=== PATIENT | male | born 1985 | race Hispanic/Latino ===

== ENCOUNTER 2018-02-22 22:26 | Inpatient (IN) | payer MEDICAID ==
[2018-02-22 23:17] LABS: BASO # 0.1 K/uL (0.0-0.2); BASO % 0.9 % (0.0-2.0); EOS # 0.4 K/uL (0.0-0.7); EOS % 2.2 % (0.0-4.0); HEMOGLOBIN 13.7 g/dL (12.0-18.0); LYMPH # 5.4 K/uL (1.0-4.3); LYMPH % 33.6 % (20.0-40.0); MEAN CELL VOLUME 87.2 fL (80.0-94.0); MEAN CORPUSCULAR HEMOGLOBIN 30.4 pg (27.0-31.0); MEAN CORPUSCULAR HGB CONC 34.8 g/dL (33.0-37.0); MEAN PLATELET VOLUME 7.5 fL (7.2-11.7); MONO # 0.7 K/uL (0.0-0.8); MONO % 4.5 % (0.0-10.0); NEUT # 9.4 K/uL (1.8-7.0); NEUT % 58.8 % (50.0-75.0); RBC 4.52 Mil/uL (4.40-5.90); WHITE BLOOD COUNT 15.9 K/uL (4.8-10.8)
[2018-02-22 23:31] LABS: ALB/GLOB RATIO 1.2 (1.0-2.1); ALBUMIN 4.7 g/dL (3.5-5.0); ALT/SGPT 68 U/L (21-72); AST/SGOT 33 U/L (17-59); BLOOD UREA NITROGEN 12 mg/dL (9-20); CALCIUM 9.6 mg/dl (8.6-10.4); GFR AFRICAN-AMERICAN > 60; GFR NON-AFRICAN AMERICAN > 60
[2018-02-22] MEDS ORDERED: Potassium Chloride 20 mEq ER Tab PO STA (23:47)
[2018-02-23] MEDS ORDERED: Potassium Chloride 20 mEq ER Tab PO ONE ×2 (00:07→10:00)
--- NOTE | 2018-02-23 00:36 | C.PDOC ---
History Of Present Illness 32 year old male presents to the ER requesting detox from heroin, last use was earlier today. Patient admits he also smokes cigarette. He notes he had an episode of vomiting today but otherwise denies nausea, fever, chills, or other complaints. Time Seen by Provider: 02/22/18 22:51 Chief Complaint (Nursing): Substance Abuse History Per: Patient History/Exam Limitations: no limitations Onset/Duration Of Symptoms: Days Current Symptoms Are (Timing): Still Present Suicide/Self Injury Attempted (Context): None Modifying Factor(s): Other (Heroin) Associated Symptoms: denies: Depression, Suicidal Thoughts Involuntary Hold By: None Recent travel outside of the [place]: No Past Medical History Reviewed: Historical Data, Nursing Documentation, Vital Signs Vital Signs: Last Vital Signs Temp 98.3 F 02/22/18 22:43 Pulse 78 02/22/18 22:43 Resp 20 02/22/18 22:43 BP 122/83 02/22/18 22:43 Pulse Ox 95 02/23/18 03:19 - Medical History PMH: Bronchitis, Depression Surgical History: Cholecystectomy Family History: States: Unknown Family Hx - Social History Hx Alcohol Use: Yes Hx Substance Use: Yes Review Of Systems Constitutional: Negative for: Fever, Chills Cardiovascular: Negative for: Chest Pain, Palpitations Respiratory: Negative for: Cough Gastrointestinal: Positive for: Vomiting. Negative for: Nausea Physical Exam - Physical Exam Appears: Non-toxic Skin: Normal Color, Warm, Dry Head: Atraumatic, Normacephalic Eye(s): bilateral: Normal Inspection Oral Mucosa: Moist Chest: Symmetrical, No Tenderness Cardiovascular: Rhythm Regular Respiratory: Normal Breath Sounds, No Rales, No Rhonchi, No Wheezing Gastrointestinal/Abdominal: Soft, No Tenderness Back: No CVA Tenderness Neurological/Psych: Oriented x3, Normal Speech ED Course And Treatment - Laboratory Results Result Diagrams: 02/22/18 23:15 02/22/18 23:15 O2 Sat by Pulse Oximetry: 95 (Room air) Pulse Ox Interpretation: Normal Medical Decision Making Medical Decision Making: Impression: 32 year old male for detox Plan: * Blood work * Urinalysis * Crisis Labs ordered and reviewed. In my clinical judgment patient is medically cleared and stable for psychiatric admission. home economics extension worker contacted for evaluation. As per CW patient is to be admitted under Dr Zapata service for detox Disposition Counseled Patient/Family Regarding: Diagnosis, Need For Followup - Disposition Disposition: HOSPITALIZED Disposition Time: 02:55 Condition: STABLE - POA Present On Arrival: None - Clinical Impression Clinical Impression: Heroin use disorder, severe, dependence, Cocaine use disorder, Cannabis abuse - PA / DE ALCOHOLIZER / Resident Statement MD/DO has reviewed & agrees with the documentation as recorded. - Scribe Statement The provider has reviewed the documentation as recorded by the Scribe Yobany Junior All medical record entries made by the Angelaibe were at my direction and personally dictated by me. I have reviewed the chart and agree that the record accurately reflects my personal performance of the history, physical exam, medical decision making, and the department course for this patient. I have also personally directed, reviewed, and agree with the discharge instructions and disposition. Decision To Admit - Pt Status Changed To: Hospital Disposition Of: Inpatient - Admit Certification Admit to Inpatient:: After my assessment, the patient will require hospitalization for at least two midnights. This is because of the severity of symptoms shown, intensity of services needed, and/or the medical risk in this patient being treated as an outpatient. - InPatient: Physician Admission Certification: I certify that this patient requires 2 or more midnights of care for the following reason:: Patient needs inpatient care for detox polysubstance - . Bed Request Type: Detox Admitting Physician: Camilo Zapata Patient Diagnosis: Heroin use disorder, severe, dependence, Cocaine use disorder, Cannabis abuse
[2018-02-23 01:56] LABS: SQUAMOUS EPITHIAL 1 /hpf (0-5); URINE BACTERIA OCC (<OCC); URINE BILIRUBIN 1+ (NEGATIVE); URINE BLOOD 2+ (NEGATIVE); URINE CLARITY Hazy (Clear); URINE COLOR Amber (YELLOW); URINE GLUCOSE (UA) NORMAL (Normal); URINE LEUKOCYTE ESTERASE NEG Leu/uL (Negative); URINE PROTEIN 3+ mg/dL (NEGATIVE)
[2018-02-23 02:12] LABS: BARBITURATES, UR NEGATIVE (NEGATIVE); PHENCYCLIDINE, UR NEGATIVE (NEGATIVE)
[2018-02-23 02:19] LABS: BENZODIAZEPINES, UR POSITIVE (NEGATIVE); OPIATES, UR POSITIVE (NEGATIVE)
--- NOTE | 2018-02-23 06:46 | PCM.BM ---
<Laila Weaver - Last Filed: 02/23/18 06:44> Treatment Plan Problems - Problems identified on initial assessmt Opiates Abuse Date Initiated: 02/23/18 Time Initiated: 04:20 Assessment reference: NA Status: Active Treatment assets and liabiliti Patient Assests: ADL independent, physically healthy, negotiates basic needs Patient Liabilities: substance abuse (Opiates, Crack, Benzo, Marijuana) - Milieu Protocol Maintain good personal hygiene: daily Encourage regular showers, daily Remind patient to perform daily oral care, every shift Assist patient to perform ADL's Conduct patient checks and document Observation sheet: Q15 minutes Maintain personal safety: every shift Educate patient to report safety concerns to staff, every shift Monitor environment for contraband/sharps Medication safety: Monitor for expected outcome, potential side effects: every shift, Assess barriers to learning: every shift, Assess readiness for medication education: every shift <Nathen Tejeda - Last Filed: 02/23/18 10:15> - Diagnosis (1) Heroin use disorder, severe, dependence Status: Acute Interventions: 02/23/18 10:15 * Assess 7x/week regarding severity of withdrawal * Educate regarding risks, benefits, side effects and alternatives of medications * Use Motivational Interviewing for abstinence * Use CBT for relapse prevention * Medication management for withdrawal symptoms * Encourage medication assisted treatment * <Patience Nelson - Last Filed: 02/23/18 11:01> Family Contact Family involvement: Famliy/SO not involved - Goals for Treatment Patient goals for treatment: Complete detox and return to IOP. Discharge/Continuing Care - Education Needs Education Needs: Patient Medication, Patient Diagnosis/Disease Process, Patient Coping Skills, Patient Anger Management skills, Patient Placement options, Patient Community resources - Discharge Discharge Criteria: No longer exhibiting s/s of withdrawal, Reduction of target symptoms Discharge to:: Home - Treatment Team Participation Patient/Family/SO Statement: 02/23/18 11:00 "I wanna go back to outpatient after here..." Discussed with Family/SO: No Was Patient/Family/SO present at Treatment Team Meeting: Yes
[2018-02-23] MEDS ORDERED: Aluminum Hydroxide/Magnesium Hydroxide Susp (30 mL) PO PRN (08:33)
--- NOTE | 2018-02-23 10:15 | PCM.PSYCH ---
Initial Psychiatric Evaluation - Initial Psychiatric Evaluation Type of Admission: Voluntary Legal Status: Capacity Chief Complaint (in patient's own words): "Detox" History of Present Illness and Precipitating Events: The patient is seen, chart reviewed and case discussed. This is a 22-year-old male, common-law , has one child who is 10 years old. Lives with and son. Unemployed. The patient is here for heroin detox; using 20 bags IV for 4 months but he first started when he was 27 years old. He also uses crack cocaine sometimes, marijuana daily and cigarettes 1 pack per day. He denies alcohol but uses Xanax "rarely." He was in detox 2 times and rehabilitation once in the past. He was seeing [facility]. Past psych history: He states he had depression and anxiety and still feels depressed. However, he denies feeling suicidal. And no psychotic or manic symptoms elicited. No admissions or suicide attempts. Family psych history: Father was an "alcoholic." Medical history: Denies Current Medications: Active Medications Generic Name Dose Route Start Last Admin Trade Name Freq PRN Reason Stop Dose Admin Al Hydrox/Mg Hydrox/Simethicone 30 ml 02/23/18 08:33 Maalox 30 Ml PO TID PRN Indigestion / Heartburn Clonidine HCl 0.1 mg 02/23/18 08:33 Catapres PO Q8 PRN COWS Score More or Equal to 5 Dicyclomine HCl 10 mg 02/23/18 08:33 Bentyl PO Q6 PRN Muscle spasm Hydroxyzine HCl 50 mg 02/23/18 08:35 Atarax PO Q6H PRN Anxiety Ibuprofen 600 mg 02/23/18 08:33 Motrin Tab PO Q6 PRN Pain, moderate (4-7) Loperamide HCl 2 mg 02/23/18 08:33 Imodium PO Q8 PRN Diarrhea Mirtazapine 15 mg 02/23/18 22:00 Remeron PO HS FRANCISCA Nicotine 1 patch 02/23/18 10:00 Nicoderm Cq TD DAILY FRANCISCA Ondansetron HCl 4 mg 02/23/18 08:33 Zofran Tab PO Q8 PRN Nausea/Vomiting Trazodone HCl 50 mg 02/23/18 22:00 Desyrel PO HS PRN Insomnia Past Psychiatric History - Past Psychiatric History Previous Treatment History: None Pertinent Medical Hx (Current Medical&Sleep Prob, Allergies): Allergies Allergy/AdvReac Type Severity Reaction Status Date / Time No Known Allergies Allergy Unverified 02/22/18 22:47 No Known Home Med 02/22/18 Review of Systems - Neurological Neurological: UNREMARKABLE - Psychiatric Psychiatric: Abnormal Sleep Pattern, Anhedonia, Anxiety, Depression, Difficulty Concentrating. absent: Hallucinations, Homicidal Ideation, Suicidal Ideation Mental Status Examination - Personal Presentation Personal Presentation: Looks stated age - Affect Affect: Constricted - Motor Activity Motor Activity: Calm - Reliability in Providing Information Reliability in Providing Information: Good - Speech Speech: Organized - Mood Mood: Depressed, Anxious - Formal Thought Process Formal Thought Process: No Impairment - Cognitive Functions Orientation: Person, Place, Situation, Time Sensorium: Alert Attention/Concentration: Attentive Estimate of Intelligence: Average Judgement: Intact, as evidence by: Insight regarding need for hospitalization Memory: Recent intact, as evidence by: Ability to recall events of the day, Remote intact, as evidenced by: Abilit to recall sig. life events - Risk Risk: Withdrawal, Diminished functioning - Strength & Assets Inventory Strength & Assets Inventory: Family support, Cooperative - Limitations Limitations: Other DSM 5 DX - DSM 5 DSM 5 Diagnosis: Opioid withdrawal Opioid use disorder, severe Cocaine use disorder, moderate Cannabis use disorder, severe Tobacco use disorder, severe Depressive disorder, unspecified - Recommended/Plan of Treatment Treatment Recommendations and Plan of Treatment: Taper with subutex Gabapentin for augmentation if needed As needed medications All risks, benefits and alternatives of the meds discussed, and the pt agreed and understood. Attend groups and activities Supportive therapy and psychoeducation SC for abstinence CBT for relapse prevention Encourage MAT Refer to rehab or IOP, and self-help groups Smoking cessation with SC Nicotine patch if needed 34 min Projected ELOS: 4-5 days Prognosis: good w treatment - Smoking Cessation Smoking Cessation Initiated: Yes
[2018-02-24 08:37] LABS: ALB/GLOB RATIO 1.1 (1.0-2.1); ALT/SGPT 68 U/L (21-72); AST/SGOT 43 U/L (17-59); BLOOD UREA NITROGEN 15 mg/dL (9-20); CALCIUM 9.2 mg/dl (8.6-10.4); GFR AFRICAN-AMERICAN > 60; GFR NON-AFRICAN AMERICAN > 60
[2018-02-24 08:56] VITALS: RESP 18
[2018-02-24] MEDS ORDERED: Buprenorphine Hydrochloride 2 mg SL ONE ×2 (10:03→11:04)
--- NOTE | 2018-02-24 11:32 | PCM.PYCHPN ---
Psychiatric Progress Note - Psychiatric Progress Note Patient seen today, length of contact: 16 min Patient Chief Complaint: "I can't sleep with trazodone, seroquel" Problems Identified/Issues Discussed: The pt is seen, chart reviewed, case discussed with staff. The pt is compliant with medications and reports no side-effects. Symptoms are improving but needs more time to stabilize. After care discussed, support and psychoeducation given. Meds adjusted Medication Change: Yes (detox changes daily) Medical Record Reviewed: Yes Mental Status Examination - Cognitive Function Orientation: Person, Place, Situation, Time Memory: Intact Attention: WNL Concentration: WNL Association: WNL Fund of Knowledge: WN - Mood Mood: Depressed, Anxious - Affect Affect: Constricted - Speech Speech: Appropriate - Formal Thought Process Formal Thought Process: No Impairment - Suicidal Ideation Suicidal Ideation: No - Homicidal Ideation Homicidal Ideation: No Goal/Treatment Plan - Goal/Treatment Plan Need for Continued Stay: Discharge may exacerbated symptoms, Severe functional impairment Progress Toward Problem(s) and Goals/Treatment Plan: Taper with subutex Gabapentin for augmentation if needed As needed medications All risks, benefits and alternatives of the meds discussed, and the pt agreed and understood. Attend groups and activities Supportive therapy and psychoeducation HI for abstinence CBT for relapse prevention Encourage MAT Refer to rehab or IOP, and self-help groups Smoking cessation with HI Nicotine patch if needed Estimated Date of D/C: 02/27/18
[2018-02-25] MEDS ORDERED: Buprenorphine Hydrochloride 2 mg SL SCH ×3 (10:00→11:33)
[2018-02-25 10:54] VITALS: BP 122/69; PULSE 71; TEMP 98.4; O2SAT 99
--- NOTE | 2018-02-25 16:49 | PCM.PYCHDC ---
Mental Status Examination - Mental Status Examination Orientation: Person, Place, Situation, Time Memory: Intact Mood: Neutral Affect: Other (Appropriate) Speech: Appropriate Attention: WNL Concentration: WNL Association: WNL Fund of Knowledge: WNL Formal Thought Process: No Impairment Description of patient's judgement and insight: Poor Psychotic Thoughts and Behaviors: None Suicidal Ideation: No Current Homicidal Ideation?: No Discharge Summary - Discharge Note Reason for Hospitalization: Opiate use disorder Cocaine use disorder Cannabis use disorder Laboratory Data: Reviewed Consultations:: List each consultation separately and include: 1. Reason for request. 2. Findings. 3. Follow-up Summary of Hospital Course include:: 1. Description of specific treatment plan utilized for patients during their course of treatmen. 2. Summarize the time- course for resolution of acute symptoms and/or regressed behaviors. 3. Describe issues identified and worked on during hospitalization. 4. Describe medication utilized. 5. Describe medical problems identified and treated. 6. Reassessment of suicide risk Summary of Hospital Course: The patient is seen, chart reviewed and case discussed. This is a 22-year-old male, common-law , has one child who is 10 years old. Lives with and son. Unemployed. The patient is here for heroin detox; using 20 bags IV for 4 months but he first started when he was 27 years old. He also uses crack cocaine sometimes, marijuana daily and cigarettes 1 pack per day. He denies alcohol but uses Xanax "rarely." He was in detox 2 times and rehabilitation once in the past. He was seeing [facility]. Past psych history: He states he had depression and anxiety and still feels depressed. However, he denies feeling suicidal. And no psychotic or manic symptoms elicited. No admissions or suicide attempts. Family psych history: Father was an "alcoholic." During his stay in the hospital, patient was started on Subutex and other when necessary medications. Patient started feeling better with the above treatment. Patient was doing good and today patient decided to leave the unit without complication off detox. Patient was educated about the completion of detox. Patient was also educated that in case of any adverse event, including relapse, decompensation, overdose or even , patient will be responsible for his actions. Patient understood and agreed with the above but still refuses to stay and left the unit AGAINST MEDICAL ADVICE. At the time of evaluation and discharge, patient was awake alert oriented 3, had no delusions, no auditory or visual hallucinations, no suicidal ideations or homicidal ideations. - Final Diagnosis (DSM 5) Condition upon Discharge: STABLE Disposition: AGAINST MEDICAL ADVICE Follow-up Treatment Plan: Patient wanted to go to [facility] in [place]. - Smoking Cessation Smoking Cessation Medication prescribed: Yes - Antipsychotic Medications Pt discharged on 2 or more routine antipsychotic medications: No
== END 2018-02-25 14:00 | disposition left against medical advice (07) | DRG 743 ==
LOC: C.ER 22:26 → C.7D 02-23 02:58
PROC: HZ2ZZZZ Detoxification Services for Substance Abuse Treatment (ICD-10-PCS; principal; 2018-02-23)
PROC: HZ52ZZZ Individual Psychotherapy for Substance Abuse Treatment, Cognitive-Behavioral (ICD-10-PCS; 2018-02-23)
PROC: HZ59ZZZ Individual Psychotherapy for Substance Abuse Treatment, Supportive (ICD-10-PCS; 2018-02-23)
PROC: HZ56ZZZ Individual Psychotherapy for Substance Abuse Treatment, Psychoeducation (ICD-10-PCS; 2018-02-23)
PROC: HZ42ZZZ Group Counseling for Substance Abuse Treatment, Cognitive-Behavioral (ICD-10-PCS; 2018-02-23)
PROC: HZ46ZZZ Group Counseling for Substance Abuse Treatment, Psychoeducation (ICD-10-PCS; 2018-02-23)
PROC: GZHZZZZ Group Psychotherapy (ICD-10-PCS; 2018-02-23)
PROC: GZ58ZZZ Individual Psychotherapy, Cognitive-Behavioral (ICD-10-PCS; 2018-02-23)
PROC: GZ56ZZZ Individual Psychotherapy, Supportive (ICD-10-PCS; 2018-02-23)
DX: F11.23 Opioid dependence with withdrawal (principal); F12.20 Cannabis dependence, uncomplicated; F14.10 Cocaine abuse, uncomplicated; F17.210 Nicotine dependence, cigarettes, uncomplicated; F32.9 Major depressive disorder, single episode, unspecified; Z81.1 Family history of alcohol abuse and dependence